=== PATIENT | male | born 1955 | race Caucasian/White ===

== ENCOUNTER → 2016-12-22 | Outpatient (CLI) | payer BC ==
--- NOTE | 2016-12-22 15:42 | PCVCIMAG ---
APPROVED REPORT Study performed: 12/22/2016 13:49:43 EXAM: Comprehensive 2D, Doppler, and color-flow Echocardiogram Patient Location: Echo lab Status: routine Other Information Study Quality: Adequate Risk Factors: Cardiac Risk Factors: HTN, Hyperlipidemia Indications Fatigue Abnormal Calcium Score 2D Dimensions LVEF(%): 52.73 (>50%) IVSd: 12.48 (7-11mm) LVDd: 45.82 mm PWd: 11.35 (7-11mm) LVDs: 33.44 (25-40mm) Left Atrium: 39.91 (27-40mm) Aortic Root: 31.69 mm LV Single Plane 4CH: 53.50 % LV Single Plane 2CH: 64.55 %Mancilla's LVEF: 59.03 % Biplane EF: 60.0 % Volumes Left Atrial Volume (Systole) Single Plane 4CH: 64.83 mLSingle Plane 2CH: 66.81 mL LA ESV Index: 30.00 mL/m2 Aortic Valve AoV Peak Ricardo.: 1.69 m/s AO Peak Gr.: 11.46 mmHgLVOT Max P.91 mmHg LVOT Max V: 1.11 m/s Mitral Valve E/A Ratio: 1.5 MV Decel. Time: 196.25 ms MV E Max Ricardo.: 0.66 m/s MV A Ricardo.: 0.45 m/s MV PHT: 56.91 ms IVRT: 96.89 ms Pulmonary Valve PV Peak Ricardo.: 1.67 m/sPV Peak Gr.: 11.21 mmHg Pulmonary Vein P Vein S: 0.41 m/sP Vein A: 0.31 m/s P Vein D: 0.66 m/sP Vein A Dur.: 134.9 msec P Vein S/D Ratio: 0.62 Tricuspid Valve TR Peak Ricardo.: 2.00 m/s TR Peak Gr.: 15.98 mmHg Left Ventricle The left ventricle is normal size. There is normal LV segmental wall motion. Mild concentric left ventricular hypertrophy. Left ventricular systolic function is normal. The left ventricular ejection fraction is within the normal range. LVEF is 55%. Grade II - pseudonormal filling dynamics. Right Ventricle The right ventricle is normal size. The right ventricular systolic function is normal. Atria The left atrium size is normal. The right atrium size is normal. Aortic Valve The aortic valve is normal in structure. No aortic regurgitation is present. There is no aortic valvular stenosis. Mitral Valve The mitral valve is normal in structure. There is no mitral valve regurgitation noted. No evidence of mitral valve stenosis. Tricuspid Valve The tricuspid valve is normal in structure. Trace tricuspid regurgitation with PAP of 23 mmHg. Pulmonic Valve The pulmonary valve is normal in structure. There is no pulmonic valvular regurgitation. Great Vessels The aortic root is normal in size. IVC is normal in size and collapses with >50% inspiration Pericardium There is no pericardial effusion. <Conclusion> The left ventricle is normal size. Mild concentric left ventricular hypertrophy. Left ventricular systolic function is normal. The right ventricle is normal size. The right atrium size is normal. The aortic valve is normal in structure. The mitral valve is normal in structure. Trace tricuspid regurgitation with PAP of 23 mmHg.
== END | disposition home or self-care (01) ==
LOC: PCVCIMAG 13:41
PROVIDERS: ATTEND Internal Medicine Cardiovascular Disease
DX: E83.52 Hypercalcemia (principal); I10 Essential (primary) hypertension; I25.10 Atherosclerotic heart disease of native coronary artery without angina pectoris; E78.00 Pure hypercholesterolemia, unspecified; E78.5 Hyperlipidemia, unspecified; I07.1 Rheumatic tricuspid insufficiency; I44.4 Left anterior fascicular block; Z79.899 Other long term (current) drug therapy; Z79.82 Long term (current) use of aspirin
CPT/HCPCS: 93005; 93306; G0463